=== PATIENT | male | born 1950 | race Caucasian/White ===

== ENCOUNTER 2018-11-23 11:21 | Outpatient (CLI) | payer MEDICARE, BC ==
[~2018-11-23] VITALS: Ht 188 cm; Wt 109.1 kg
--- NOTE | ~2018-11-23 | HEMODYNAMI ---
PATIENT:NELLY VAZQUEZ MEDICAL RECORD: [id number] : 54 LOCATION:[facility] ADMISSION DATE: 11/23/18 Generatedon:11/23/201814:07 Patient name: NELLY VAZQUEZ Patient #: [id number] SSN: : 1950 Date of study: 11/23/2018 Page: Of Hemodynamic Procedure Report Patient Data Patient Demographics Procedure consent was obtained First Name: NELLY Gender: Male Last Name: GEORGE : 1950 Patient #: [id number] Age: 68 year(s) Race: Unknown Additional ID: [id number] Contact details Address: [address] [place] [address] ROAD State: [place] City: [place] Zip code: [address] Past Medical History Allergies: No known allergies Admission Admission Data Admission Date: 11/23/2018 Admission Time: 11:21 Procedure Procedure Types Cath Procedure Diagnostic Procedure TRACY Procedure Description Procedure Date Procedure Date: 11/23/2018 Procedure Start Time: 13:46 Procedure End Time: 13:59 Procedure Staff Name Function Jeffry Aparicio RN Nurse Fernando Silver MD Performing Physician Jarrell Cisneros RT Scrub Carmencita Price RT Monitor Debby Jha Goldbeater Morro Combs CRNA Additional personnel Procedure Data Cath Procedure Estimated blood loss: 10 ml Procedure Complications No complications Procedure Medications Medication Administration Route Dosage Oxygen etCO2 Nasal cannula 6 l/min 0.9% NaCl I.V. 100 ml/hr Refer to Anesthesia Notes for Sedation Medications Hemodynamics Rest Heart Rate: 77 (bpm) Snapshots Pre Cath Intra NCS Post Cath Vital Signs Time Heart Resp SPO2 etCO2 NIBP (mmHg) Rhythm Pain Sedation Rate (ipm) (%) (mmHg) Status Level (bpm) 13:39:17 74 16 99 0 158/94(126) NSR 0 (11) 10(A) , No pain 13:43:41 109 16 99 0 133/95(107) NSR 0 (11) 10(A) , No pain 13:48:13 100 17 98 0 159/90(120) NSR 0 (11) 9(A) , No pain 13:52:11 84 17 96 0 103/56(76) NSR 0 (11) 9(A) , No pain 13:55:42 79 25 95 0 85/43(61) NSR 0 (11) 9(A) , No pain 14:03:23 81 6 96 0 106/60(72) NSR 0 (11) 9(A) , No pain Medications Time Medication Route Dose Verified Delivered Reason Notes Effective ness by by 13:48:29 Oxygen etCO2 6 Fernando Teran Per Nasal l/min St Cole Aparicio RN physician cannula 13:48:39 0.9% NaCl I.V. 100 Fernando Teran Per ml/hr St Cole Aparicio RN physician 13:48:47 Refer to Fernando Teran Per Anesthesia St Cole Aparicio RN physician Notes for MD Sedation Medications Procedure Log Time Note 13:31:30 Jeffry Aparicio RN sent for patient. Start room use. 13:38:30 Vital chart was started 13:41:28 Diagnostic Cath status Elective 13:41:32 Time tracking: Regular hours (M-F 7:00 - 5:00) 13:41:48 Patient received from Pre/Post Procedure Room to CCL 3 Alert and oriented. Tansferred to table in Supine position. 13:41:49 Warm blankets applied, and mayito hugger turned on for patient comfort. 13:41:50 Correct patient and procedure confirmed by team. 13:41:52 Signed procedure consent form obtained from patient. 13:41:53 ECG and BP/O2 sat monitors applied to patient. 13:41:54 Baseline sample Acquired. 13:42:00 Rhythm: sinus rhythm 13:42:02 Full Disclosure recording started 13:42:18 H&P Date Dictated: 11/07/2018 Within 30 days and on chart., H&P Addendum completed by physician on day of procedure. (MUST COMPLETE FOR ALL OUTPATIENTS). 13:42:22 Family in waiting room. 13:42:24 Patient NPO since Midnight. 13:42:32 Patient allergic to No known allergies 13:43:53 Is the patient allergic to Iodine/contrast media? No. 13:43:57 Was the patient premedicated? Yes 13:44:03 Is patient on blood thinner?No 13:44:12 Patient diabetic? No. 13:44:17 Snore? Yes 13:44:20 Sleep apnea? No 13:44:27 Patient pain scale 0/10 ?. 13:44:39 IV patent on arrival in left forearm with 0.9% NaCl at [facility]. 13:44:49 Lab results completed and on chart. 13:44:52 Alarms reviewed by Che Sampson. 13:44:53 Physician arrived 13:44:53 Sharps counted by scrub and verified by R.N. 13:44:54 --------ALL STOP TIME OUT------ 13:45:06 Final Timeout: patient, procedure, and site verified with staff and physician. All members of the team are in agreement. 13:45:12 Fire Safety Assessment: A--An alcohol-based skin anteseptic being used preoperatively., B--The operative or invasive procedure is being performed above the xiphoid process or in the oropharynx., D--An ESU, laser, or fiber-optic light is being used. 13:45:20 Physical assessment completed. ASA score P 2 - A patient with mild systemic disease as per Fernando Silver MD. 13:45:24 Morro Combs CRNA present and monitoring patient for TIVA. 13:45:32 Sedation plan: TIVA Medication:Propofol 13:46:15 Procedure started. 13:46:43 Debby Perrindsoe Gum Maker present for TRACY. 13:46:49 TRACY started. 13:48:29 Oxygen 6 l/min etCO2 Nasal cannula was administered by Jeffry Aparicio RN; Per physician; 13:48:39 0.9% NaCl 100 ml/hr I.V. was administered by Jeffry Aparicio RN; Per physician; 13:48:47 Refer to Anesthesia Notes for Sedation Medications was administered by Jeffry Aparicio RN; Per physician; 13:53:24 TRACY completed. 13:53:50 Procedure ended.(Physican Out) 13:58:17 Insertion/operative site no bleeding no hematoma. 13:58:33 Post-procedure physical assessment completed. ASA score P 2 - A patient with mild systemic disease as per Fernando Silver MD. 13:58:37 Post procedure rhythm: sinus rhythm 13:58:41 Estimated blood loss: 10 ml 13:58:43 Post procedure instruction explained to patient.Patient verbalizes understanding. 13:58:50 Procedure and supply charges have been captured, reviewed, submitted and are correct. 13:59:07 Procedure Complication : No complications 13:59:09 Vital chart was stopped 13:59:10 See physician's report for complete and final results. 13:59:13 Report given to Pre/Post Procedure Room. 13:59:16 Patient transfered to Pre/Post Procedure Room with Stretcher. 13:59:20 Full Disclosure recording stopped 13:59:20 Procedure ended. 13:59:22 End room use (Document Last) Signature Audit [place] Stage Time Signature Unsigned Intra-Procedure 11/23/2018 Carmencita Cisneros RT(R) 1:59:52 PM RT(R) 11/23/2018 2:02:47 PM Intra-Procedure 11/23/2018 Carmencita Price 2:07:48 PM RT(R) Signatures Monitor : Carmencita Priec Signature : RT Date : Time : [facility] [address] [place] [address]
--- NOTE | ~2018-11-23 | TEE ---
PATIENT:NELLY VAZQUEZ MEDICAL RECORD: [id number] LOCATION:[facility] AGE OF PATIENT: 68 ADMISSION DATE: 11/23/18 SEX: M REFERRING PHYSICIAN: INTERPRETING PHYSICIAN: BETH ALCARAZ MD TRANSESOPHAGEAL ECHOCARDIOGRAM Date: 11/23/18 TRACY CHARGE Y INDICATIONS: MR PREMEDICATIONS: PATIENT'S RESPONSE PROCEDURE DOPPLER MEASUREMENTS: LVIT LA PA RA LVOT RVOT Asc. Ao AV Gradient Peak AV Mean AV Area MV Gradient Peak MV Mean MV Area INTERPRETATION: Doppler: 2-D: COLOR FLOW DOPPLER NORMAL SALINE STUDY: MISCELLANOUS: DIAGNOSIS: PLAN: Mold Maker:3 Dr. Gregory Cotton Presser: 1 JAMES ALBA COMMENTS: DATE OF SERVICE: 11/23/2018 PROCEDURE: Transesophageal Note. DESCRIPTION OF PROCEDURE: After general sedation via TIVA via anesthesia, transesophageal Omniplane probe was placed to the distal esophagus and proximal stomach without difficulty. FINDINGS: LVH is present. LV internal dimensions are normal. Wall motion is TRANSESOPHAGEAL ECHOCARDIOGRAM REPORT [id number] NELLY VAZQUEZ normal. He is greater than or equal to 55%. Aortic valve is well visualized. This is trileaflet with good valve excursion. No AI. The left atrium appears mildly dilated at most. Left atrial appendage is well visualized with good contractility. No evidence of thrombus. 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 This wraps around to the level of the pulmonary vein. Right-sided chambers grossly normal. Tricuspid valve appears normal. No more than mild TR by color flow imaging. TRANSINT:[id number] Voice Confirmation ID: [id number] DOCUMENT ID: [id number] BETH ALCARAZ MD CC: [id number] DICTATION DATE: 11/23/18 1358 MOTOR ROOM CONTROLLER: 11/23/18 1501 [facility] [address] [place] [address]
[2018-11-23] MEDS ORDERED: NORVASC10 MG PO (11:33)
[2018-11-23] MEDS ORDERED: LISINOPRIL20 MG PO (11:33)
[2018-11-23] MEDS ORDERED: GLUCOSAMINE HC500 MG PO (11:34)
[2018-11-23] MEDS ORDERED: MULTI-DAY VITAM1 TAB PO (11:34)
[2018-11-23 11:46] VITALS: BP 158/81; Ht 188 cm; Wt 109.1 kg
[2018-11-23 11:55] LABS: BASOPHILS 1.5 % (0-2); EOSINOPHILS 3.6 % (0-7); HEMATOCRIT 41.4 % (42.0-54.0); HEMOGLOBIN 14.8 g/dL (13.5-17.5); LYMPHOCYTES 27.6 % (15-50); MCH 34.7 pg (26.0-34.0); MCHC 35.7 g/dL (31.0-37.0); MCV 97.2 fL (80.0-100.0); MEAN PLATELET VOLUME 10.4 fL (7.4-10.4); MONOCYTES 13.7 % (2-11); NEUTROPHILS 53.6 % (40-80); PLATELET COUNT 201 10x3/uL (130-400); RBC 4.26 10x6/uL (4.20-6.10); RDW 12.2 % (11.5-14.5); WBC 4.7 10x3/uL (4.8-10.8)
[2018-11-23 12:01] LABS: INR 0.97 (0.85-1.17); PROTIME 12.4 SECONDS (11.6-15.0)
[2018-11-23 12:02] LABS: CALC OSMOLALITY 279 mosm/kg (275-300); CALCIUM 9.2 mg/dL (8.5-10.1); CARBON DIOXIDE 28.6 mmol/L (21.0-32.0); CHLORIDE - SERUM 103 mmol/L (98-107); CREATININE - SERUM 0.9 mg/dL (0.6-1.3); GLUCOSE 103 mg/dL (74-106); POTASSIUM - SERUM 3.8 mmol/L (3.5-5.1); SODIUM 140 mmol/L (136-145); UREA NITROGEN 16 mg/dL (7-18); eGFR NON AFRICAN AMERICAN 90 mL/min (90-120)
--- NOTE | 2018-11-23 14:16 | NUR ---
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 PT IS SITTING UP IN BED, ALERT AND DENIES ANY C/O. NSR, RATE IS 78. BP IS 137/72. PT NPO POST PROCEDURE. FAMILY AT BEDSIDE, CALL LIGHT IN REACH.
--- NOTE | 2018-11-23 14:52 | NUR ---
1430 PT SITTING UP IN BED, VISITING WITH FAMILY. DENIES ANY C/O. VSS. CALL LIGHT IN REACH.
--- NOTE | 2018-11-23 14:53 | NUR ---
1450 PT ALERT, DENIES ANY C/O. VSS, RESP WITH EASE ON ROOM AIR.
--- NOTE | 2018-11-23 15:41 | NUR ---
1515 PT MARGRET PO FLUIDS WITH NO NAUSEA, NO DIFFICULTY SWALLOWING. PT IS ALERT AND DENIES ANY C/O. SANDWICH SERVED. 1530 PT HAS MARGRET SANDWICH WITH NO C/O. DC INSTRUCTIONS REVIEWED WITH PT AND SON WHO VERBALIZE UNDERSTANDING. IV DC'D WITH CATH INTACT AND PT IS DRESSING FOR DC TO HOME. 1535 PT ESCORTED TO BATHROOM, VOIDED QS. DENIES ANY C/O. PT ESCORTED TO PRIVATE AUTO VIA WC BY NURSE WITH SON DRIVING HIM HOME.
== END 2018-11-23 15:35 | disposition home or self-care (01) ==
LOC: D.CATH 11:21
PROVIDERS: ATTEND Internal Medicine Interventional Cardiology
DX: I34.9 Nonrheumatic mitral valve disorder, unspecified (principal)

== ENCOUNTER 2018-12-21 11:27 | Outpatient (CLI) | payer MEDICARE, BC ==
[~2018-12-21] VITALS: Ht 188 cm; Wt 109.1 kg
--- NOTE | ~2018-12-21 | HEMODYNAMI ---
PATIENT:TABBY VAZQUEZ MEDICAL RECORD: [id number] : 54 LOCATION:D.CAT ADMISSION DATE: 12/21/18 Generatedon:12/21/201813:21 Patient name: TABBY VAZQUEZ Patient #: [id number] SSN: : 1950 Date of study: 12/21/2018 Page: Of Hemodynamic Procedure Report Patient Data Patient Demographics Procedure consent was obtained First Name: TABBY Gender: Male Last Name: GEORGE : 1950 Middle Initial: BABAK Age: 68 year(s) Patient #: [id number] Race: Unknown Additional ID: [id number] Contact details Address: [address] [place] [address] ROAD State: [place] City: [place] Zip code: [address] Past Medical History Allergies: No known allergies Admission Admission Data Admission Date: 12/21/2018 Admission Time: 11:27 Height (in.): 72 BSA: 2.32 (m2) Height (cm.): 182.88 BMI: 33.09 (kg/m2) Weight (lbs.): 244 Weight (kg.): 110.68 Lab Results Lab Result Date: 12/21/2018 Lab Result Time: 0:00 Biochemistry Name Units Result Min Max BUN mg/dl 14 --(--*-)-- 7 18 Creatinine mg/dl 0.7 --(*---)-- 0.6 1.3 Procedure Procedure Types Cath Procedure Diagnostic Procedure [facility] w/Coronaries Procedure Description Procedure Date Procedure Date: 12/21/2018 Procedure Start Time: 13:05 Procedure End Time: 13:19 Procedure Staff Name Function Torito Salguero MD Performing Physician Carmencita Price RT Monitor Ana Harrison RT Scrub Nevaeh Rogers RN Nurse Procedure Data Cath Procedure Fluoroscopy Diagnostic fluoroscopy Total fluoroscopy Time: 4.4 time: 4.4 min min Diagnostic fluoroscopy Total fluoroscopy dose: 677 dose: 677 mGy mGy Contrast Material Contrast Material Type Amount (ml) Isovue 300 56 Entry Location Entry Primary Successful Side Size Upsize Upsize Entry Closure Martinez ccessful Closure Location (Fr) 1 (Fr) 2 (Fr) Remarks Device Remarks Radial Right 6 Fr Mechanical artery Short Compression Estimated blood loss: 10 ml Diagnostic catheters Device Type Used For End Catheter Placement DIAGNOSTIC Mukul 110cm Procedure 5Fr catheter ([id number]) DIAGNOSTIC Pigtail 5Fr catheter ([id number]) Procedure Complications No complications Procedure Medications Medication Administration Route Dosage 0.9% NaCl I.V. 100 ml/hr Oxygen etCO2 Nasal cannula 2 l/min Lidocaine 2% added to field 20 Heparin Flush Bag added to field 2 bags (1000units/500ml NS) Radial Cocktail added to field 1 syringe (Verapamil 2mg/Nitro 400mcg/Heparin 1500units) Versed I.V. 2 mg Fentanyl I.V. 50 mcg Versed I.V. 2 mg Fentanyl I.V. 50 mcg Versed I.V. 1 mg Fentanyl I.V. 50 mcg Versed I.V. 1 mg Fentanyl I.V. 50 mcg Hemodynamics Rest BSA: 2.32 (m2) O2 Consumption: Estimated: 277.11 (ml/min) O2 Consumption indexed : Estimated:119.44 (ml/min/m) Heart Rate: 78 (bpm) Pressure Samples Time Site Value (mmHg) Purpose Heart Use Rate(bpm) 13:15 LV 130/-4,11 Snapshot 82 13:16 AO 121/70(90) Pullback 81 13:16 LV 129/-2,13 Pullback 81 Gradients Valve Time Site 1 Site 2 Mean SEP/DFP Peak To Heart Use (mmHg) (sec/min) Peak Rate (mmHg) (bpm) Aortic 13:16 LV AO 9 8 8 81 129/-2,13 121/70(90) Calculations Valve P-P Mean Valve Index Valve Source Name Gradient Area Flow (cm2) Aortic 8 9 8 9 Snapshots Pre Cath Intra NCS Post Cath Vital Signs Time Heart Resp SPO2 etCO2 NIBP (mmHg) Rhythm Pain Sedation Rate (ipm) (%) (mmHg) Status Level (bpm) 12:43:10 90 18 98 34 149/91(122) NSR 0 (11) 10(A) , No pain 12:47:26 68 15 97 35 135/85(108) NSR 0 (11) 10(A) , No pain 12:51:40 74 16 98 33.6 126/77(104) NSR 0 (11) 10(A) , No pain 12:55:58 71 15 98 19.4 127/69(94) NSR 0 (11) 10(A) , No pain 13:00:08 71 16 98 34 111/72(91) NSR 0 (11) 10(A) , No pain 13:04:16 74 11 97 33.6 131/80(101) NSR 0 (11) 10(A) , No pain 13:08:26 79 16 98 32.8 117/78(91) NSR 0 (11) 10(A) , No pain 13:12:33 80 18 97 32.1 122/77(86) NSR 0 (11) 10(A) , No pain 13:16:41 80 18 98 35.8 115/78(95) NSR 0 (11) 10(A) , No pain Medications Time Medication Route Dose Verified Delivered Reason Notes E ffectiveness by by 12:42:24 0.9% NaCl I.V. 100 Torito Nevaeh used for ml/hr Jose M Rogers high energy forming equipment operator 12:42:30 Oxygen etCO2 2 l/min Torito Nevaeh used for Nasal Jose M Rogers procedure cannula RN 12:42:35 Lidocaine 2% added 20ml Torito Torito for local to vial Jose M Salguero MD anesthetic field 12:42:40 Heparin Flush added 2 bags Torito Torito used for Bag to Jose M Salguero MD procedure (1000units/500ml field NS) 12:42:45 Radial Cocktail added 1 Torito Torito used for (Verapamil to syringe Jose M Salguero MD procedure 2mg/Nitro field 400mcg/Heparin 1500units) 13:00:53 Versed I.V. 2 mg Torito Nevaeh for Jose M Rogers sedation RN 13:01:19 Fentanyl I.V. 50 mcg Torito Nevaeh for Jose M Rogers sedation RN 13:06:03 Versed I.V. 2 mg Torito Nevaeh for Jose M Rogers sedation RN 13:06:08 Fentanyl I.V. 50 mcg Torito Nevaeh for Jose M Rogers sedation RN 13:10:52 Versed I.V. 1 mg Torito Nevaeh for Jose M Rogers sedation RN 13:10:55 Fentanyl I.V. 50 mcg Torito Nevaeh for Jose M Rogers sedation RN 13:13:37 Versed I.V. 1 mg Torito Nevaeh for Jose M Rogers sedation RN 13:13:41 Fentanyl I.V. 50 mcg Torito Nevaeh for Jose M Rogers sedation supervisor vacuum metalizing Log Time Note 12:22:59 Signed procedure consent form obtained from patient. 12:23:01 Diagnostic Cath status Elective 12:23:02 Time tracking: Regular hours (M-F 7:00 - 5:00) 12:23:06 Plan of Care:Hemodynamics will remain stable., Cardiac rhythm will remain stable., Comfort level will be maintained., Respiratory function will remain adequate., Patient/ family verbilizes understanding of procedure., Procedure tolerated without complication., Recovers from procedure without complications.. 12:23:25 H&P Date Dictated: 12/01/2018 Within 30 days and on chart., H&P Addendum completed by physician on day of procedure. (MUST COMPLETE FOR ALL OUTPATIENTS). 12:23:30 Patient allergic to No known allergies 12:23:42 Patient Height : 72 inches 12:23:45 Patient Weight : 244 lbs 12:28:54 Ana Harrison RT(R) sent for patient. Start room use. 12:34:11 Patient received from Pre/Post Procedure Room to CCL 1 Alert and oriented. Tansferred to table in Supine position. 12:34:13 Warm blankets applied, and mayito hugger turned on for patient comfort. 12:34:14 Correct patient and procedure confirmed by team. 12:34:56 ECG and BP/O2 sat monitors applied to patient. 12:34:57 Pre-procedure instructions explained to patient. 12:34:57 Pre-op teaching completed and patient verbalized understanding. 12:34:59 Family in waiting room. 12:35:01 Patient NPO since Breakfast. 12:35:37 Is patient on blood thinner?No 12:36:13 Patient diabetic? No. 12:36:18 Previous problem with sedation/anesthesia? No ? 12:36:26 Snore? No 12:36:27 Sleep apnea? No 12:36:27 Deviated septum? No 12:36:28 Opens mouth fully? Yes 12:36:29 Sticks out tongue? Yes 12:36:31 Airway obstruction? No ? 12:36:35 Dentures? Yes in tight 12:38:08 Patient pain scale 0/10 ?. 12:38:13 IV patent on arrival in left forearm with 0.9% NaCl at [facility]. 12:38:35 Lab results completed and on chart. 12:39:01 Lab Result : BUN 14 mg/dl 12:39:01 Lab Result : Creatinine 0.7 mg/dl 12:39:19 Modified Toni's test Ulnar < 7 seconds 12:39:20 Pre procedure: right dorsailis pedis pulse 2+ Normal; easily identifiable; not easily obliterated 12:39:30 Right Radial & Right Groin area was prepped with chlora-prep and draped in sterile fashion 12:39:30 Alarms reviewed by R. N. 12:39:31 Sharps counted by scrub and verified by R.N. 12:39:33 Use device set Radial Dx or PCI 12:39:34 ACIST Syringe (87387) opened to sterile field. 12:39:34 Medline Cath Pack ([id number]) opened to sterile field. 12:39:35 Bag Decanter (2002S) opened to sterile field. 12:39:36 ACIST Hand Control (00212) opened to sterile field. 12:39:36 ACIST Manifold (36033) opened to sterile field. 12:39:37 Tegaderm 4 x 4 (1626W) opened to sterile field. 12:39:37 MBrace Wrist Support ([id number]) opened to sterile field. 12:39:38 DIAGNOSTIC WIRE .035 260cm J wire (706781) opened to sterile field. 12:39:39 SHEATH 6FR Slender (801060) opened to sterile field. 12:39:40 NEEDLE Cook 21G 4cm Radial ([id number]) opened to sterile field. 12:39:46 Vital chart was started 12:42:24 0.9% NaCl 100 ml/hr I.V. was administered by Nevaeh Rogers RN; used for procedure; 12:42:30 Oxygen 2 l/min etCO2 Nasal cannula was administered by Nevaeh Rogers RN; used for procedure; 12:42:35 Lidocaine 2% 20ml vial added to field was administered by Torito Salguero MD; for local anesthetic; 12:42:40 Heparin Flush Bag (1000units/500ml NS) 2 bags added to field was administered by Torito Salguero MD; used for procedure; 12:42:45 Radial Cocktail (Verapamil 2mg/Nitro 400mcg/Heparin 1500units) 1 syringe added to field was administered by Torito Salguero MD; used for procedure; 12:49:31 Baseline sample Acquired. 12:49:38 Baseline sample Acquired. 12:50:15 Baseline sample Acquired. 12:51:44 Physician arrived 12:51:45 --------ALL STOP TIME OUT------ 12:56:48 Zero performed for pressure channel P1 13:00:01 Final Timeout: patient, procedure, and site verified with staff and physician. All members of the team are in agreement. 13:00:05 Right Radial & Right Groin site verified by team. 13:00:09 Maximum allowable Isovue 300 dose 300ml. Physician notified. (300ml for normal creatinines. For patients with creatinine of 1.7 or higher multiply weight(kg) x 5 divided by creatinine.) 13:00:13 Fire Safety Assessment: A--An alcohol-based skin anteseptic being used preoperatively., C--Open oxygen or nitrous oxide is being used., D--An ESU, laser, or fiber-optic light is being used. 13:00:17 Physical assessment completed. ASA score P 2 - A patient with mild systemic disease as per Torito Salguero MD. 13:00:22 Sedation plan: IV Moderate Sedation Medication:Versed, Fentanyl 13:00:53 Versed 2 mg I.V. was administered by Nevaeh Rogers RN; for sedation; 13:01:19 Fentanyl 50 mcg I.V. was administered by Nevaeh Rogers RN; for sedation; 13:05:35 Procedure started. 13:05:35 Full Disclosure recording started 13:05:48 Local anesthetic to right radial artery with Lidocaine 2% by Torito Salguero MD.INITIAL ACCESS ONLY 13:06:03 Versed 2 mg I.V. was administered by Nevaeh Rogers RN; for sedation; 13:06:08 Fentanyl 50 mcg I.V. was administered by Nevaeh Rogers RN; for sedation; 13:06:43 A 6 Fr Short sheath was inserted into the Right Radial artery 13:09:40 A DIAGNOSTIC Mukul 110cm 5Fr catheter ([id number]) was advanced over the wire and used for Procedure. 13:09:50 GLIDE WIRE ANGLE 260cm ([id number]) opened to sterile field. 13:10:52 Versed 1 mg I.V. was administered by Nevaeh Rogers RN; for sedation; 13:10:55 Fentanyl 50 mcg I.V. was administered by Nevaeh Rogers RN; for sedation; 13:11:29 LCA angiography performed. 13:12:46 RCA angiography performed. 13:12:52 Catheter removed. 13:13:25 A DIAGNOSTIC Pigtail 5Fr catheter ([id number]) was advanced over the wire and used for . 13:13:37 Versed 1 mg I.V. was administered by Nevaeh Rogers RN; for sedation; 13:13:41 Fentanyl 50 mcg I.V. was administered by Nevaeh Rogers RN; for sedation; 13:15:53 EF : 55 % 13:16:21 TR BAND Standard ([id number]) opened to sterile field. 13:17:22 Catheter removed. 13:17:45 Sheath removed intact; hemostasis achieved with Mechanical Compression to the Right Radial artery. 13:17:50 Procedure ended.(Physican Out) 13:18:02 Fluoroscopy time 04.40 minutes. 13:18:07 Fluoroscopy dose: 677 mGy 13:18:07 Flurop Dose total: 677 13:18:14 Contrast amount:Isovue 300 56ml. 13:18:22 TR band inflated with 10cc of air. 13:18:24 Insertion/operative site no bleeding no hematoma. 13:18:27 Post Procedure Pulses reassessed and unchanged 13:18:31 Post-procedure physical assessment completed. ASA score P 2 - A patient with mild systemic disease as per Torito Salguero MD. 13:18:35 Post procedure rhythm: unchanged. 13:18:39 Estimated blood loss: 10 ml 13:18:42 Post procedure instruction explained to patient.Patient verbalizes understanding. 13:18:59 Procedure and supply charges have been captured, reviewed, submitted and are correct. 13:19:17 Procedure Complication : No complications 13:19:20 Vital chart was stopped 13:19:21 See physician's report for complete and final results. 13:19:35 Report given to Pre/Post Procedure Room. 13:19:39 Patient transfered to Pre/Post Procedure Room with Stretcher. 13:19:41 Procedure ended. 13:19:41 Full Disclosure recording stopped 13:19:46 End room use (Document Last) Device Usage Item Name Manufacture Quantity Catalog Hospital Part Current Minimal Lot# / Number Charge Number Stock Stock Serial# Code ACIST Acist 1 10106 974983 689860 213124 20 Syringe Medical (68704) Systems Inc Medline Medline 1 [id number] 695198 54268 477325 5 Cath Pack ([id number]) Bag Microtek 1 643539 27549 053226 5 Decanter Medical Inc. () ACIST Hand Acist 1 46793 344186 008965 193613 5 Control Medical (66019) Systems Inc ACIST Acist 1 62731 886275 600106 627635 5 Manifold Medical (23960) Systems Inc Tegaderm 4 3M 1 1626W 218574 814697 144029 5 x 4 (1626W) MBrace Advanced 1 140-0250-00 011968 25991 411626 5 Wrist Vascular Support Dynamics ([id number]) DIAGNOSTIC St Amaury 1 082369 883893 524814 342683 30 WIRE .035 260cm J wire (430358) SHEATH 6FR Terumo 1 [id number] 255748 008727 369848 5 Slender (80-1060) NEEDLE Cook Cook Medical 1 W22823 893655 922947 924588 5 21G 4cm Radial (P28762) DIAGNOSTIC Terumo 1 405023 291281 874409 129344 5 Mukul 110cm 5Fr catheter (233438) GLIDE WIRE Terumo 1 VP8499 374624 114058 726677 5 ANGLE 260cm (RI8640) DIAGNOSTIC Cardinal 1 [id number] 857065 760685 693311 5 Pigtail 5Fr Health catheter (642375G) TR BAND Terumo 1 [id number] 047420 853291 628304 40 Standard ([id number]) Signature Audit [place] Stage Time Signature Unsigned Intra-Procedure 12/21/2018 Carmencita Price 1:21:28 PM RT(R) Signatures Monitor : Carmencita Price Signature : RT Date : Time : [address] [place] [address]
[~2018-12-21 11:27] MED LIST: GLUCOSAMINE HC500 MG PO; LISINOPRIL20 MG PO; MULTI-DAY VITAM1 TAB PO; NORVASC10 MG PO
[2018-12-21] MEDS ORDERED: MOTRIN PM CAPL1 EACH PO (11:57)
[2018-12-21 12:13] VITALS: BP 162/89; BMI 30.8
[2018-12-21 12:37] LABS: CALC OSMOLALITY 278 mosm/kg (275-300); CALCIUM 9.2 mg/dL (8.5-10.1); CARBON DIOXIDE 27.6 mmol/L (21.0-32.0); CHLORIDE - SERUM 101 mmol/L (98-107); CREATININE - SERUM 0.7 mg/dL (0.6-1.3); GLUCOSE 104 mg/dL (74-106); POTASSIUM - SERUM 3.8 mmol/L (3.5-5.1); SODIUM 139 mmol/L (136-145); UREA NITROGEN 14 mg/dL (7-18); eGFR NON AFRICAN AMERICAN > 90 mL/min (90-120)
[2018-12-21 12:41] LABS: BASOPHILS 2.4 % (0-2); EOSINOPHILS 4.3 % (0-7); HEMATOCRIT 40.3 % (42.0-54.0); HEMOGLOBIN 14.4 g/dL (13.5-17.5); LYMPHOCYTES 30.5 % (15-50); MCH 34.7 pg (26.0-34.0); MCHC 35.7 g/dL (31.0-37.0); MCV 97.1 fL (80.0-100.0); MEAN PLATELET VOLUME 10.3 fL (7.4-10.4); MONOCYTES 10.2 % (2-11); NEUTROPHILS 52.6 % (40-80); PLATELET COUNT 206 10x3/uL (130-400); RBC 4.15 10x6/uL (4.20-6.10); RDW 12.1 % (11.5-14.5); WBC 3.7 10x3/uL (4.8-10.8)
--- NOTE | 2018-12-21 13:45 | NUR ---
ROOM AIR, NO RESP DISTRESS. RIGHT WRIST TR BAND CDI, NO BLEEDING OR HEMATOMA NOTED. NO C/O PAIN OR NAUSEA. VSS. FAMILY AT BEDSIDE, CALL LIGHT WITHIN REACH.
--- NOTE | 2018-12-21 14:15 | NUR ---
RESTING COMFORTABLY WITH NO C/O. RIGHT WRIST TR BAND CDI, NO BLEEDIGN OR HEMATOMA NOTED. DENIES ANY NEEDS. VSS. WILL CONTINUE TO MONITOR.
--- NOTE | 2018-12-21 14:30 | NUR ---
3CC OF AIR REMOVED FROM TR BAND WITH NO BLEEDING NOTED. VSS. WILL CONTINUE TO MONITOR.
--- NOTE | 2018-12-21 14:45 | NUR ---
3CC OF AIR REMOVED FROM TR BAND WITH NO BLEEDING NOTED.
--- NOTE | 2018-12-21 15:05 | NUR ---
2CC OF AIR REMOVED FROM TR BAND WITH NO BLEEDING NOTED. LEFT PIV D/C'D WITH CATHETER INTACT, BAND AID TO SITE. UP TO BEDSIDE TO GET DRESSED. AMBULATED TO RESTROOM.
--- NOTE | 2018-12-21 15:20 | NUR ---
REMAINING AIR REMOVED FROM TR BAND WITH NO BLEEDING NOTED. DRESSING TO SITE. DISCHARGE INSTRUCTIONS ALONG GIVEN TO PT AND FAMILY, BOTH VERBALIZED UNDERSTANDING.
--- NOTE | 2018-12-21 15:28 | NUR ---
DR. CRUM AT BEDSIDE SPEAKING WITH PATIENT AND FAMILY.
--- NOTE | 2018-12-21 15:50 | NUR ---
TAKEN OUT VIA WHEELCHAIR BY CATH HOMOGENIZER OPERATOR. LEFT FACILITY WITH FAMILY AND ALL PERSONAL BELONGINGS.
[2018-12-21 16:10] VITALS: Ht 188 cm; Wt 109.1 kg
== END 2018-12-21 15:50 | disposition home or self-care (01) ==
LOC: D.CATH 11:27
PROVIDERS: ATTEND Internal Medicine Cardiovascular Disease
DX: I34.0 Nonrheumatic mitral (valve) insufficiency (principal); Z01.812 Encounter for preprocedural laboratory examination; R01.1 Cardiac murmur, unspecified; I10 Essential (primary) hypertension; Z87.891 Personal history of nicotine dependence; Z79.1 Long term (current) use of non-steroidal anti-inflammatories (NSAID); Z79.899 Other long term (current) drug therapy

== ENCOUNTER 2019-01-06 09:38 | Inpatient (IN) | payer MEDICARE, BC ==
[~2019-01-06] VITALS: Ht 188 cm; Wt 108.3 kg
[~2019-01-06 09:38] MED LIST changes: +MOTRIN PM CAPL1 EACH PO
[2019-01-06] MEDS ORDERED: MOTRIN PM CAPL1 EACH PO (10:02)
[2019-01-06 10:59] LABS: BASOPHILS 1.4 % (0-2); EOSINOPHILS 4.2 % (0-7); HEMATOCRIT 41.7 % (42.0-54.0); LYMPHOCYTES 25.4 % (15-50); MCH 35.2 pg (26.0-34.0); MCV 97.9 fL (80.0-100.0); MEAN PLATELET VOLUME 10.4 fL (7.4-10.4); MONOCYTES 12.8 % (2-11); NEUTROPHILS 56.2 % (40-80); PLATELET COUNT 196 10x3/uL (130-400); RBC 4.26 10x6/uL (4.20-6.10); RDW 11.9 % (11.5-14.5); WBC 3.6 10x3/uL (4.8-10.8)
[2019-01-06 11:23] LABS: ALBUMIN 4.3 g/dL (3.4-5.0); ALKALINE PHOSPHATASE 34 U/L (46-116); ALT (SGPT) 34 U/L (10-68); BILIRUBIN - TOTAL 0.83 mg/dL (0.2-1.3); CALC OSMOLALITY 281 mosm/kg (275-300); CALCIUM 9.5 mg/dL (8.5-10.1); CARBON DIOXIDE 28.3 mmol/L (21.0-32.0); CHLORIDE - SERUM 102 mmol/L (98-107); CHOLESTEROL, TOTAL 269 mg/dL (0-200); CREATININE - SERUM 0.8 mg/dL (0.6-1.3); GLUCOSE 116 mg/dL (74-106); PHOSPHOROUS 4.2 mg/dL (2.5-4.9); POTASSIUM - SERUM 4.1 mmol/L (3.5-5.1); PROTEIN - SERUM 7.7 g/dL (6.4-8.2); SODIUM 140 mmol/L (136-145); T4 THYROXIN - FREE 1.02 ng/dL (0.76-1.46); THYROID STIMULATING HORMONE 0.81 uIU/mL (0.36-3.74); UREA NITROGEN 17 mg/dL (7-18); URIC ACID 4.4 mg/dL (2.6-7.2); eGFR NON AFRICAN AMERICAN > 90 mL/min (90-120)
[2019-01-06 11:29] LABS: APPEARANCE CLEAR (CLEAR); COLOR YELLOW (YELLOW)
[2019-01-06 11:30] LABS: BILIRUBIN NEGATIVE (NEGATIVE); GLUCOSE NEGATIVE (NEGATIVE); KETONE NEGATIVE (NEGATIVE); NITRITE NEGATIVE (NEGATIVE); PROTEIN NEGATIVE (NEGATIVE); UROBILINOGEN NORMAL (NORMAL)
[2019-01-06 11:50] LABS: APTT 24.8 SECONDS (22.8-39.4); INR 0.99 (0.85-1.17); PROTIME 12.6 SECONDS (11.6-15.0)
[2019-01-10] VITALS (23 sets, daily range): BP systolic 87–161; BP diastolic 46–92; BMI 31.1
--- NOTE | 2019-01-10 13:41 | NUR ---
1208 PT RECEIVED TO ROOM SEDATED FROM SURGERY ETT SECURED AND PLACED ON VENT BY RT, AC, R IJ CVL DRESSING CDI WITH SWAN KINJAL LOCKED AT 55CM, SEE IV FLOWSHEET, MIDSTERNAL AND SUBSTERNAL DRESSINGS CDI WITH TPM WIRES ATTACHED TO TPM, TPM OFF, SUBSTERNAL CTX2 Y'D TOGETHER, 20CM SUCTION, NO AIR LEAK, BLOODY DRAINAGE, CRITICORE DRAINING YELLOW URINE, SCDS AND TEDS IN PLACE 1250ABGS CALLED TO DR CRUM, ORDERS TO NOT TREAT BASE EXCESS 1300 A LINE WAVEFORM DAMPENING, POSITIONAL, FLUSHED, DRAWS BLOOD, DRESSING REMOVED AND REDRESSED, WRIST PROTECTOR REPOSITIONED, CONTINUES TO HAVE POOR OR FLAT WAVEFORM WITH INTERMITTEN GOOD WAVEFORM, DR ARNDT NURSE CHRIS NOTIFIED 1330 DR HERNANDEZ WITH ANESTHESIA IN ROOM AND REPOSITIONED A LINE, CONTINUES TO FLATTEN AND DAMPEN INTERMITTENLY BUT WHEN READING IS COMPARABLE TO NIBP DR CRUM IN ROOM AND ORDERS TO TREAT ORIGINAL BASE EXCESS WITH 1 AMP BICARB
--- NOTE | 2019-01-10 14:52 | NUR ---
ABGS REVIEWED BY DR SKYLA FITZGERALD TO EXTUBATE AND DC Oswaldo SOSA
--- NOTE | 2019-01-10 15:23 | NUR ---
1453 EXTUBATED AND RESTRAINTS REMOVED 1510 R RADIAL A LINE REMOVED PER PROTOCOL TIP INTACT NO SIGNS OF BLEEDING, SWAN KINJAL REMOVED PER PROTOCOL AND CAP PLACED
--- NOTE | 2019-01-10 15:35 | OP ---
PATIENT NAME: TABBY VAZQUEZ MEDICAL RECORD: [id number] :54 LOCATION:[facility] D.CV06 ADMISSION DATE:01/10/19 SURGEON: WYATT CRUM MD DATE OF OPERATION: 01/10/2019 SURGEON: Wyatt Crum MD UNIVERSITY CONTROLLER: Samuel Delcid. OPERATION PERFORMED. Complex mitral valve repair with resection of portion of posterior leaflet and 34 mm mitral annuloplasty ring. PREOPERATIVE DIAGNOSIS: Mitral regurgitation. POSTOPERATIVE DIAGNOSIS: Mitral regurgitation. ANESTHESIA: General endotracheal anesthesia. ESTIMATED BLOOD LOSS: Total cardiopulmonary bypass with Cell Saver retransfusion. COMPLICATIONS: None. SPECIMENS: Portion of posterior leaflet. CONDITION: Stable. DISPOSITION: ICU. OPERATIVE FINDINGS: Transesophageal echocardiography confirmed the previous findings of an eccentric jet with severe regurgitation, left atrium 4.5 cm, left ventricular end-diastolic dimension 5.6 cm, and moderate left ventricular hypertrophy. After repair, there was only trace mitral regurgitation. Intraoperatively ruptured secondary chordae from P1 amenable to a triangular resection, central regurgitant jet repaired with annuloplasty ring. OPERATIVE INDICATION: Mitral regurgitation. OPERATIVE SUMMARY IN DETAIL: The patient was brought to the operating suite. General anesthesia was obtained. The patient was prepped and draped. Mediastinotomy incision was made. Subcutaneous tissue divided with electrocautery. The sternum was divided with a saw. The pericardium was opened. Heparin was given. Aorta was cannulated. Bicaval cannulation was performed. Retrograde cardioplegia cannula was inserted. After activated clotting time was appropriately elevated, the patient was placed on cardiopulmonary bypass. The patient was cooled. Crossclamp was placed. A 14-gauge angiocatheter was used for the aortic root vent and cardioplegia given antegrade and retrograde. This was repeated at about 20-minute intervals during the crossclamp time. The interatrial groove was dissected out. The left atrium was entered. The valve was visualized with findings as noted above. Triangular resection of posterior leaflet with primary repair [id number] of the slightly thickened valvular tissue and again the bowel was inspected with a central jet. No significant prolapse of the anterior or posterior leaflet. Therefore, the valve OPERATIVE REPORT [id number] TABBY VAZQUEZ was sized to 34 mm. Interrupted sutures were placed along the annulus through the valve sewing ring, valve ring was carefully lowered into place, sutures were tied. Only trace regurgitation was noted. The patient was rewarmed. The aortotomy was closed and with the patient in steep Trendelenburg position, the left ventricular apex was de-aired the crossclamp was removed. The aortic root vent was eventually removed. The patient resumed a spontaneous rhythm, fully rewarmed, weaned from cardiopulmonary bypass and stable. The patient was decannulated. Aortic cannulation site was oversewn with pledgeted Prolene suture. Protamine was given. Thorough irrigation was undertaken and hemostasis was ensured. Drains were placed in the mediastinum. Atrial and ventricular pacing wires were placed. Pericardial fat was loosely reapproximated. Sternum was closed. Fascia was closed. Subcutaneous tissue was closed. Skin was closed. Dermabond was placed. The needle and sponge counts were reported as correct and the patient was taken to ICU in stable condition. TRANSINT:[id number] Voice Confirmation ID: [id number] DOCUMENT ID: [id number] WYATT CRUM MD at 1535 CC: SOPHIE HOGAN M.D. and LO BYRNE MD [id number] DICTATION DATE: 01/10/19 1212 PURCHASING BUYER: 01/10/19 1306 ADM IN [facility] [address] [place] [address]
--- NOTE | 2019-01-10 16:13 | CN ---
PATIENT NAME:TABBY VAZQUEZ MEDICAL RECORD: [id number] : 54 LOCATION:[facility]CV06 ADMIT DATE: 01/10/19 ACCOUNT: [id number] CONSULTING PHYSICIAN: CHELO PINO DO REFERRING PHYSICIAN: DULCE CRUM MD DATE OF CONSULTATION: 01/10/2019 FAMILY PRACTICE CONSULT HISTORY OF PRESENT ILLNESS: Mr. Vazquez is a 68-year-old white male patient who is seen postoperatively after undergoing mitral valve replacement. He is currently stable and has been extubated. Discussed with Dr. Crum. His vitals appear good. His pain seems controlled at this time. PAST MEDICAL HISTORY: Significant for known mitral valve disorder, hypertension. PAST SURGICAL HISTORY: Include a T&A and inguinal surgeries with subsequent repairs on the left. ALLERGIES OR INTOLERANCES: None known. HOME MEDICATIONS: Include Norvasc 10 mg a day, lisinopril 20 mg a day, multivitamin, glucosamine, and ibuprofen PM FAMILY HISTORY: Significant for cardiovascular disease and hypertension. SOCIAL HISTORY: The patient is a smoker in the past. He denies any drug use. REVIEW OF SYSTEMS: Currently he is having some chest pain, which is to be expected. Denies any shortness of breath. No nausea at this time. PHYSICAL EXAMINATION: HEENT: Head is normocephalic, sclerae nonicteric. Mucous membranes are moist. HEART: Regular. LUNGS: With good breath sounds bilaterally. Anterior thoracotomy incision is dry. ABDOMEN: Soft, few bowel sounds are noted. NEUROLOGIC: Grossly intact. IMPRESSION: 1. Mitral valve disease status post repair, now extubated. 2. Hypertension. PLAN: We will follow in ICU. Monitor BP, monitor labs. See orders for rest of plan. TRANSINT:[id number] Voice Confirmation ID: [id number] DOCUMENT ID: [id number] CONSULT REPORT [id number] TABBY VAZQUEZ CHELO PINO DO at 1613 CC: [id number] DICTATION DATE: 01/10/19 1540 CODE MACHINE OPERATOR: 01/10/19 1551 ADM IN [place] [address] [place] [address]
--- NOTE | 2019-01-10 16:31 | NUR ---
GOOD COUGH, PULLS 500-1200 ON IS
--- NOTE | 2019-01-10 17:24 | MORECARE ---
CASE MANAGEMENT DISCHARGE SUMMARY PATIENT: TABBY VAZQUEZ UNIT: [id number] ADM DATE: 01/10/19 AGE: 68 : 52 SEX: M [facility] AUTHOR: JOSE L GLASS PHYSICIAN: REFERRING PHYSICIAN: DULCE CRUM MD DATE OF SERVICE: 01/10/19 Discharge Plan Patient Name: TABBY VAZQUEZ [facility] [facility] 1950 Planned Disposition: Home Anticipated Discharge Date: Discharge Date: Expected LOS: Initial Reviewer: [email or web address] Initial Review Date: 01/10/2019 Generated: 01/10/19 6:24 pm Patient Name: TABBY VAZQUEZ Page 38862 at 1724 All edits/amendments must be made on the electronic document DICTATION DATE: 01/10/191722 SLEEVE FIXER: SOLOMON 01/10/191722 RPT#: [id number] IA DATE: STATUS: ADM IN [facility] [address] [place] [address] END OF REPORT
--- NOTE | 2019-01-10 17:32 | MORECARE ---
CASE MANAGEMENT DISCHARGE SUMMARY PATIENT: TABBY VAZQUEZ UNIT: [id number] ADM DATE: 01/10/19 AGE: 68 : 52 SEX: M [facility] AUTHOR: JOSE L GLASS PHYSICIAN: REFERRING PHYSICIAN: DULCE CRUM MD DATE OF SERVICE: 01/10/19 Discharge Plan Patient Name: TABBY VAZQUEZ [facility] [facility] 1950 Planned Disposition: Home Anticipated Discharge Date: Discharge Date: Expected LOS: Initial Reviewer: [email or web address] Initial Review Date: 01/10/2019 Generated: 01/10/19 6:32 pm DCPIA - Discharge Planning Initial Assessment Updated by [email or web address]: Deann Cain on 01/10/19 5:25 pm * Is the patient Alert and Oriented? Yes * How many steps to enter\exit or inside your home? * PCP [facility] * Pharmacy [facility] * Preadmission Environment Home Alone * ADLs Independent * Equipment Wheelchair * List name and contact numbers for known caregivers / representatives who currently or will assist patient after discharge: Mason Vazquez [facility] [place] - [phone] * Verbal permission to speak to the caregivers and representatives has been obtained from the patient. N/A * Community resources currently utilized None * Additional services required to return to the preadmission environment? No * Can the patient safely return to the preadmission environment? Yes * Has this patient been hospitalized within the prior 30 days at any hospital? No Last DP export: 01/10/19 4:24 p Patient Name: TABBY VAZQUEZ Page [id number] at 1732 All edits/amendments must be made on the electronic document DICTATION DATE: 01/10/191731 SCIENTIFIC EDITOR: SOLOMON 01/10/191731 RPT#: [id number] DC DATE: STATUS: ADM IN [facility] [address] [place] [address] END OF REPORT
--- NOTE | 2019-01-10 18:31 | MORECARE ---
CASE MANAGEMENT DISCHARGE SUMMARY PATIENT: TABBY VAZQUEZ UNIT: [id number] ADM DATE: 01/10/19 AGE: 68 : 52 SEX: M ROOM/BED: [facility] AUTHOR: QUAN,DOC PHYSICIAN: REFERRING PHYSICIAN: DULCE CRUM MD DATE OF SERVICE: 01/10/19 Discharge Plan Patient Name: TABBY VAZQUEZ Facility: [facility]:[place] : 1950 Planned Disposition: Home Anticipated Discharge Date: Discharge Date: Expected LOS: Initial Reviewer: [email or web address] Initial Review Date: 01/10/2019 Generated: 01/10/19 7:30 pm Comments DCP- Discharge Planning Updated by [email or web address]: Deann Cain on 01/10/19 5:[address] Patient Name: TABBY VAZQUEZ Admission Status: Elective Accout number: [id number] Admission Date: 01-10-2019 : 1950 Admission Diagnosis: Attending: DULCE CRUM Current LOS: 1 Anticipated DC Date: Planned Disposition: Home Primary Insurance: MEDICARE A & B Discharge Planning Comments: CM met with patient at bedside after explaining CM role and obtaining verbal consent. Patient lives at home alone and plans to return there upon discharge. CM discussed availability / needs of home health and medical equipment. Patient denies any discharge needs at this time. Patient may need walk test if he is still requiring 02 at discharge. Patient states he will have his son drive him home upon discharge. CM will continue to follow and assist as needed with discharge planning / needs. [employer] Department Head: Deann Cain DCPIA - Discharge Planning Initial Assessment Updated by [id number]: Deann Cain on 01/10/19 5:25 pm * Is the patient Alert and Oriented? Yes * How many steps to enter\exit or inside your home? * PCP [facility] * Pharmacy [facility] * Preadmission Environment Home Alone * ADLs Independent * Equipment Wheelchair * List name and contact numbers for known caregivers / representatives who currently or will assist patient after discharge: Mason Vazquez - [place] - [phone] * Verbal permission to speak to the caregivers and representatives has been obtained from the patient. N/A * Community resources currently utilized None * Additional services required to return to the preadmission environment? No * Can the patient safely return to the preadmission environment? Yes * Has this patient been hospitalized within the prior 30 days at any hospital? No Last DP export: 01/10/19 4:32 p Patient Name: TABBY VAZQUEZ Page 25167 at 1831 All edits/amendments must be made on the electronic document DICTATION DATE: 01/10/191829 CNC MECHANIC: SOLOMON 01/10/191829 RPT#: [id number] DC DATE: STATUS: ADM IN [facility] [address] [place] [address] END OF REPORT
--- NOTE | 2019-01-10 18:59 | NUR ---
DANGLED ON SIDE OF BED AND RETURNED TO BED EASILY
--- NOTE | 2019-01-10 19:08 | NUR ---
REPORT RECEIVED, SHIFT ASSESSMENT COMPLETED PER FLOW SHEET. AAOX4. PPP. X2 SUBSTERNAL CT Y'D TOGETHER TO 20 CM SUCTION, NO AIR LEAK NOTED. JHOANA DREW AND SCD'S ON. TPM WIRES CONNECTED TO PACEMAKER BUT NOT TURNED ON. SEE FLOW SHEET FOR COMPLETE ASSESSMENT. CALL LIGHT WITHIN REACH. WILL CONTINUE TO MONITOR.
--- NOTE | 2019-01-10 20:14 | NUR ---
SON AT BEDSIDE, QUESTIONS ANSWERED. WATER PROVIDED TO PATIENT PER HIS REQUEST, DENIES OTHER NEEDS. CALL LIGHT WITHIN REACH.
--- NOTE | 2019-01-10 21:27 | NUR ---
SCHEDULED MEDS GIVEN, WATER PROVIDED. NO TROUBLE SWALLLOWING. DENIES NEEDS. CALL LIGHT WITHIN REACH.
--- NOTE | 2019-01-10 23:04 | NUR ---
REASSESSMENT COMPLETED PER FLOW SHEET, SEE FOR DETAILS. NO ACUTE DISTRESS NOTED. PULLING 100X10 ON IS. COUGH NON-PRODUCTIVE. WILL CONTINUE TO MONITOR. CALL LIGHT WITHIN REACH.
[2019-01-11] VITALS (26 sets, daily range): BP systolic 111–139; BP diastolic 64–80; Ht 188 cm; Wt 108.3 kg
--- NOTE | 2019-01-11 01:00 | NUR ---
NO ACUTE CHANGES NOTED, DENIES NEEDS AT THIS TIME. CALL LIGHT WITHIN REACH.
--- NOTE | 2019-01-11 03:14 | NUR ---
REASSESSMENT COMPLETED PER FLOW SHEET, SEE FOR DETAILS. NO ACUTE CHANGES NOTED. PULLING 1000 X10 ON IS. WATER PROVIDED. DENIES OTHER NEEDS. PPP. WILL CONTINUE TO MONITOR. CALL LIGHT WITHIN REACH.
--- NOTE | 2019-01-11 05:00 | NUR ---
COMPLETE BED BATH GIVEN. COMPLETE BED LINEN CHANGE PROVIDED. SUBSTERNAL DRESSING CHANGED PER DOCTOR'S ORDERS, TPM WIRES SECURED. TOLERATED WELL. CALL LIGHT WITHIN REACH.
--- NOTE | 2019-01-11 05:40 | NUR ---
ASSISSTED OOB TO CHAIR, TOLERATED WELL. CALL LIGHT AND BELONGINGS WITHIN REACH. WILL CONTINUE TO MONITOR.
[2019-01-11 06:14] LABS: HEMATOCRIT 34.6 % (42.0-54.0); MCH 34.3 pg (26.0-34.0); MCHC 34.7 g/dL (31.0-37.0); MCV 98.9 fL (80.0-100.0); MEAN PLATELET VOLUME 10.7 fL (7.4-10.4); RBC 3.5 10x6/uL (4.20-6.10); RDW 12.4 % (11.5-14.5); WBC 11.9 10x3/uL (4.8-10.8)
[2019-01-11 06:46] LABS: ALBUMIN 3.3 g/dL (3.4-5.0); ALKALINE PHOSPHATASE 19 U/L (46-116); ALT (SGPT) 29 U/L (10-68); BILIRUBIN - TOTAL 1.14 mg/dL (0.2-1.3); CALC OSMOLALITY 281 mosm/kg (275-300); CALCIUM 8.3 mg/dL (8.5-10.1); CARBON DIOXIDE 29.8 mmol/L (21.0-32.0); CHLORIDE - SERUM 103 mmol/L (98-107); CREATININE - SERUM 0.8 mg/dL (0.6-1.3); GLUCOSE 151 mg/dL (74-106); POTASSIUM - SERUM 4.2 mmol/L (3.5-5.1); PROTEIN - SERUM 5.8 g/dL (6.4-8.2); SODIUM 139 mmol/L (136-145); UREA NITROGEN 15 mg/dL (7-18); eGFR NON AFRICAN AMERICAN > 90 mL/min (90-120)
--- NOTE | 2019-01-11 09:09 | NUR ---
0700 PT RECIEVED UP IN CHAIR ALERT AN DORIENTED O2 3L DECREASED TO 2L NC, R IJ CVL DRESSING CDI WITH PLASMALYTE AND ZINACEF INFUSING, MIDSTERNAL AND SUBSTERNAL DRESSINGS CDI WITH SUBSTERNAL TPM WIRES ATTACHED TO TPM, TURNED OFF, CTX2 TO 20CM SUCTION SEROSANG DRAINAGE, NO AIR LEAK, CRITICORE LEBLANC DRAINING YELLOW URINE, TEDS AND SCDS IN PLACE 0830 AM MEDS GIVEN, LEBLANC REMOVED TIP INTACT, URINAL PROVIDED, PT REFUSING BREAKFAST, SON IN ROOM AND UPDATED, CALL LIGHT WITHIN REACH
--- NOTE | 2019-01-11 19:21 | NUR ---
BEDSIDE SHIFT REPORT GIVEN BY DEPARTING RN. PT SITTING UP IN BED WATCHING TV. AAOX4. DENIES ANY NEEDS. 2L NC. RT IJ CVL PATENT AND INFUSING. VSS. C/O INCISIONAL PAIN. 01/09. ASSESSMENT COMPLETE. SEE FS FOR DETAILS. SAFETY MEASURES IN PLACE. CBIR.
--- NOTE | 2019-01-11 20:22 | NUR ---
HS MEDS GIVEN. BG CHECKED. SEE FLOWSHEET AND MAR FOR DETAILS.
--- NOTE | 2019-01-11 21:14 | NUR ---
DENIES BATH AT THIS TIME. REQUESTS TO SLEEP. SAYS "MAYBE IN THE MORNING". WILL TRY AGAIN LATER.
--- NOTE | 2019-01-11 22:49 | NUR ---
REASSESSMENT COMPLETE. VSS. NO CHANGES NOTED IN PT CONDITION. SAFETY MEASURES IN PLACE. CBIR.
[2019-01-12] VITALS (29 sets, daily range): BP systolic 102–153; BP diastolic 64–83
--- NOTE | 2019-01-12 01:08 | NUR ---
PRN PAIN MED GIVEN. SEE MAR FOR DETAILS.
--- NOTE | 2019-01-12 02:30 | NUR ---
REPORT REC'D. PT AOX4, VSS. DENIES PAIN. UNLABORED RESPIRATIONS. DENIES PAIN AT THIS TIME. REPOSITIONS SELF INDEPENDENTLY. DENIES NEEDS AT THIS TIME. RESTING COMFORTABLY. CALL LIGHT WITHIN PT REACH. CPOC.
--- NOTE | 2019-01-12 03:40 | NUR ---
PT REPOSITIONED, PARTIAL LINEN CHANGE PROVIDED. VSS, PT DENIES PAIN, DENIES NEEDS. CALL LIGHT WITHIN PT REACH. CPOC.
--- NOTE | 2019-01-12 05:00 | NUR ---
UP TO CHAIR, COMPLETE LINEN CHANGE PROVIDED. COUGH/DB WITH GOOD EFFORT, I/S COMPLETED REACHING 1500 X10. VSS, DENIES PAIN, DENIES NEEDS AT THIS TIME. CALL LIGHT WITHIN PT REACH. CPOC
[2019-01-12 05:12] LABS: HEMOGLOBIN 10.5 g/dL (13.5-17.5); MCH 34.5 pg (26.0-34.0); MCV 98.7 fL (80.0-100.0); MEAN PLATELET VOLUME 10.4 fL (7.4-10.4); RBC 3.04 10x6/uL (4.20-6.10); RDW 12.3 % (11.5-14.5); WBC 10.1 10x3/uL (4.8-10.8)
[2019-01-12 06:02] LABS: ALBUMIN 2.9 g/dL (3.4-5.0); ALKALINE PHOSPHATASE 23 U/L (46-116); ALT (SGPT) 25 U/L (10-68); BILIRUBIN - TOTAL 0.95 mg/dL (0.2-1.3); CALCIUM 8.2 mg/dL (8.5-10.1); CARBON DIOXIDE 27.5 mmol/L (21.0-32.0); CHLORIDE - SERUM 100 mmol/L (98-107); CREATININE - SERUM 0.7 mg/dL (0.6-1.3); GLUCOSE 128 mg/dL (74-106); PROTEIN - SERUM 5.7 g/dL (6.4-8.2); SODIUM 135 mmol/L (136-145); eGFR NON AFRICAN AMERICAN > 90 mL/min (90-120)
[2019-01-12 06:03] LABS: CALC OSMOLALITY 270 mosm/kg (275-300); UREA NITROGEN 11 mg/dL (7-18)
--- NOTE | 2019-01-12 07:00 | NUR ---
AWAKE AND ALERT. UP IN CHAIR AT BEDSIDE. DENIES PAIN EXCEPT WHEN COUGHING. CHEST DRESSINGS DRY AND INTACT. PACER WIRES CONNECTED TO BATTERY. BATTERY NOT TURNED ON. INCENTIVE SPIROMETRY DONE TO 1500. MONITOR SR. OVERTON ORDERED FOR BREAKFAST. STATES HIS STOMACH IS A LITTEL QUEEZY.
--- NOTE | 2019-01-12 08:00 | NUR ---
DR. CRUM HERE. BREAKFAST SERVED.
--- NOTE | 2019-01-12 09:30 | NUR ---
UP ON BSC PASSING GAS. NO BM. AMBULATED IN [place] PER PHYSICAL THERAPY. TOLERATED FAIR. FRESH ICE WATER PROVIDED. ACCUCHECK DONE WITHIN ACCEPTABLE RANGE
--- NOTE | 2019-01-12 11:34 | NUR ---
SITTING UP IN CHAIR AT BEDSIDE. TRYING TO NAP. REFUSED BATH AT THIS TIME.
--- NOTE | 2019-01-12 11:41 | NUR ---
LUNCH TRAY SERVED
--- NOTE | 2019-01-12 11:50 | NUR ---
STANDING INDEPENDENTLY TO VOID. ENCOURAGE TO CALL NURSE
--- NOTE | 2019-01-12 12:52 | NUR ---
COMPLETE BED BATH GIVEN WHILE UP IN CHAIR. STOOD FOR PERINEAL CARE PATIENT TOLERATED WELL.SON HERE ASSISTANING WITH SHAVE AND ORAL CARE
--- NOTE | 2019-01-12 14:00 | NUR ---
WATCHING TV. NO DISTRESS. AMBULATED IN [place] PER PHYSICAL THERAPY TOLERATED FAIR.
--- NOTE | 2019-01-12 15:50 | NUR ---
UP IN CHAIR NO DISTRESS. INCENTIVE SPIROMETRY TO 2000 ML. ENCOURAGE TO COUGH AND DEEP BREATH. WEAK COUGH. STATES IT ONLY HURTS WHEN I COUGH
--- NOTE | 2019-01-12 17:00 | NUR ---
DINNER TRAY SERVED ATE 90% OF SOUP AND PEACHES.DRINK FLUIDS WELL TODAY.
--- NOTE | 2019-01-12 17:35 | NUR ---
AMBULATED TO BED WITH ASSISTANCES. DRESSING DRY AND INTACT. TOLERATED FAIR. SON AT BEDSIDE.
--- NOTE | 2019-01-12 18:30 | NUR ---
STOOD AT BEDSIDE AND VOIDED WITH ASSISTANCES.
--- NOTE | 2019-01-12 18:55 | NUR ---
SUBSTERNAL DRESSING CHANGED. INCISIONS CLEAN WITH BETADINE. NEW BIO PATCH APPLIED. NO DRAINAGE FROM SITES, NO REDNESS. 4X4 APPLIED, COVERED WITH TEGRADERM. PATIENT TOLERATED WELL
--- NOTE | 2019-01-12 19:10 | NUR ---
BEDSIDE SHIFT REPORT GIVEN BY DEPARTING RN. PT LAYING IN BED WATCHING TV. AAOX4. PERRLA. DENIES ANY NEEDS. FRESH ICE WATER PROVIDED. ASSESSMENT COMPLETE. SEE FLOWSHEET FOR DETAILS. SAFETY MEASURES IN PLACE. CBIR.
--- NOTE | 2019-01-12 20:00 | NUR ---
FAMILY AT BEDSIDE. UPDATE GIVEN. ALL QUESTIONS ANSWERED.
--- NOTE | 2019-01-12 20:19 | NUR ---
HS MEDS GIVEN. PRN PAIN MED GIVEN. SEE MAR FOR DETAILS.
--- NOTE | 2019-01-12 21:38 | NUR ---
ALERTED NURSE USING CALL BRANTLEY. HELPED STAND UP TO USE URINAL. TOLERATED WELL.
--- NOTE | 2019-01-12 23:17 | NUR ---
REASSESSMENT COMPLETE. NO CHANGES NOTED IN PT CONDITION. VSS. DENIES PAIN OR NEEDS AT THIS TIME. SAFETY MEASURES IN PLACE. CBIR.
[2019-01-13] VITALS (26 sets, daily range): BP systolic 103–136; BP diastolic 58–87
--- NOTE | 2019-01-13 01:06 | NUR ---
ASLEEP SHOWING NO SS OF DISTRESS. VSS.
--- NOTE | 2019-01-13 03:33 | NUR ---
REASSESSMENT COMPLETE. NO NEW CHANGES NOTED.
--- NOTE | 2019-01-13 04:38 | NUR ---
OOB TO PA AND LAT
[2019-01-13 04:42] LABS: HEMATOCRIT 29.1 % (42.0-54.0); MCH 33.9 pg (26.0-34.0); MCHC 34.4 g/dL (31.0-37.0); MCV 98.6 fL (80.0-100.0); MEAN PLATELET VOLUME 10.4 fL (7.4-10.4); RBC 2.95 10x6/uL (4.20-6.10)
[2019-01-13 04:43] LABS: WBC 6.6 10x3/uL (4.8-10.8)
--- NOTE | 2019-01-13 04:54 | NUR ---
BACK TO ROOM FROM PA AND LAT. TOLERATED WELL. IN CHAIR WATCHING TV WITH NO SS OF DISTRESS NOTED.
[2019-01-13 05:07] LABS: ALBUMIN 2.8 g/dL (3.4-5.0); ALKALINE PHOSPHATASE 26 U/L (46-116); ALT (SGPT) 25 U/L (10-68); BILIRUBIN - TOTAL 0.88 mg/dL (0.2-1.3); CALC OSMOLALITY 275 mosm/kg (275-300); CALCIUM 8.3 mg/dL (8.5-10.1); CARBON DIOXIDE 28.1 mmol/L (21.0-32.0); CHLORIDE - SERUM 102 mmol/L (98-107); CREATININE - SERUM 0.7 mg/dL (0.6-1.3); GLUCOSE 111 mg/dL (74-106); POTASSIUM - SERUM 3.5 mmol/L (3.5-5.1); PROTEIN - SERUM 5.9 g/dL (6.4-8.2); SODIUM 138 mmol/L (136-145); UREA NITROGEN 10 mg/dL (7-18); eGFR NON AFRICAN AMERICAN > 90 mL/min (90-120)
--- NOTE | 2019-01-13 09:40 | TEE ---
PATIENT:TABBY VAZQUEZ MEDICAL RECORD: [id number] LOCATION:[facility] AGE OF PATIENT: 68 ADMISSION DATE: 01/10/19 SEX: M REFERRING PHYSICIAN: INTERPRETING PHYSICIAN: PEPE MULLER MD TRANSESOPHAGEAL ECHOCARDIOGRAM Date: 01/10/19 TRACY CHARGE Y INDICATIONS: MITRAL VALVE REPAIR PREMEDICATIONS: PATIENT'S RESPONSE PROCEDURE DOPPLER MEASUREMENTS: LVIT LA PA RA LVOT RVOT Asc. Ao AV Gradient Peak AV Mean AV Area MV Gradient Peak MV Mean MV Area INTERPRETATION: Doppler: 2-D: COLOR FLOW DOPPLER NORMAL SALINE STUDY: MISCELLANOUS: DIAGNOSIS: PLAN: Oyster Planter:Tati Salguero Material Flow Analyst: Tati PATTERSON COMMENTS: DATE OF SERVICE: 01/10/2019 PROCEDURE: Transesophageal echo evaluation of valvular structures during mitral valve replacement surgery. FINDINGS: 1. Left ventricular chamber size is within normal limits. Left ventricular systolic function is normal. Overall ejection fraction is estimated at 55%. 2. Left atrium is enlarged at 4.5 cm. TRANSESOPHAGEAL ECHOCARDIOGRAM REPORT [id number] TABBY VAZQUEZ 3. Valvular structures: Mitral valve demonstrates mitral valve prolapse with severe mitral regurgitation. Remaining valvular structures have normal structure and motion. 4. No evidence of pericardial effusion or left ventricular thrombus. TRANSINT:[id number] Voice Confirmation ID: [id number] DOCUMENT ID: [id number] at 0940 CC: [id number] DICTATION DATE: 01/10/19 1637 BOX GLUER: 01/10/19 1735 ADM IN [place] [address] [place] [address]
--- NOTE | 2019-01-13 09:45 | NUR ---
0700 PT RECIEVED UP IN CHAIR ALERT AND OREINTED O2 2L NC, R IJ CVL DRESSING CDI WITH PLASMALYTE INFUSING, PLASMALYTE DCD, MIDSTERNAL AND SUBSTERNAL DRESSINGS CDI, TPM WIRES ATTACHED AND SECURED, TEDS AND SCDS IN USE 0900 AMBULATED WITH PT, TOOK AM MEDS AND ATE BREAKFAST WIHTOUT DIFFICULTY
--- NOTE | 2019-01-13 12:04 | NUR ---
NUTRITION F/U CHART REVIEWED, PT VISIT. TOLERATING DIET AND REPORTS INTAKE "OKAY BUT NOT MUCH APPETITE YET". WILL CONTINUE TO PROVIDE AHA DIET, MONITOR PO INTAKE. RD FOLLOWING
[2019-01-13] MEDS ORDERED: PERCOCET 5-3251 TAB PO (12:26)
--- NOTE | 2019-01-13 17:07 | NUR ---
1200 ATE 75% LUNCH 1300 AMBULATED WITH PT 1700 ATE 75% DINNER
--- NOTE | 2019-01-13 19:40 | NUR ---
REC'D PT RESTING IN BED ON ROOM AIR, PT AWAKE, ALERT, AND ORIENTED X 4, MIDSTERNAL DRSG CDI, RIJ CVL DRSG CDI, SIDE PORTS SALINE LOCKED, SUBSTERNAL DRSG TO P/M WIRES AND PREVIOUS CT INSERTION SITES DRSG CDI, PT DENIES PAIN OR NEEDS, ABD SOFT, BS ACTIVE, URINAL EMPTIED OF 100 DARK URINE, PPP, SR UP X 2, CALL LIGHT IN REACH.
--- NOTE | 2019-01-13 20:30 | NUR ---
FAMILY AT BS, UPDATE PROVIDED AND QUESTIONS ANSWERED, PT RESTING IN BED VISITING WITH FAMILY, DENIES NEEDS.
--- NOTE | 2019-01-13 21:15 | NUR ---
EVENING MEDS GIVEN ORDERED, PT MOVING SELF INDEPENDENTLY IN BED FOR COMFORT, DENIES PAIN, LIGHTS TURNED DOWN, CALL LIGHT IN REACH.
--- NOTE | 2019-01-13 23:15 | NUR ---
REASSESSMENT COMPLETED, PT RESTING IN BED WATCHING TV, PT DENIES PAIN OR NEEDS, ICE WATER PROVIDED, BP STABLE, CM-SR @ 99, WILL CONTINUE TO MONITOR FOR CHANGES.
[2019-01-14] VITALS (13 sets, daily range): BP systolic 119–137; BP diastolic 72–86
--- NOTE | 2019-01-14 01:00 | NUR ---
PT RESTING IN BED, EYES CLOSED, RESP EVEN AND UNLABORED, VSS
--- NOTE | 2019-01-14 03:00 | NUR ---
REASSESSMENT COMPLETED, NO CHANGES FROM PREVIOUS ASSESSMENT, PT DENIES PAIN OR NEEDS, SR UP X 2, CALL LIGHT IN REACH.
--- NOTE | 2019-01-14 04:30 | NUR ---
PT TAKEN TO RADIOLOGY FOR PA AND LATERAL, TOLERATED WELL, LINEN CHANGE PROVIDED, PT REQUESTING TO LIE BACK DOWN TEMPORARILY, BACK TO BED WITHOUT DIFFICULTY, VSS, SR UP X 2, CALL LIGHT IN REACH.
--- NOTE | 2019-01-14 04:40 | NUR ---
PT RETURNED TO ROOM, WISHES TO RETURN TO BED UNTIL BREAKFAST TIME, MONITORS REESTABLISHED, CALL LIGHT IN REACH.
--- NOTE | 2019-01-14 05:55 | NUR ---
AM LAB DRAWN AND SENT TO LAB, PT ASSISTED UP TO CHAIR AT BS, PT DENIES PAIN OR NEEDS.
[2019-01-14 06:20] LABS: HEMOGLOBIN 10.4 g/dL (13.5-17.5); MCH 34.1 pg (26.0-34.0); MCHC 34.7 g/dL (31.0-37.0); MCV 98.4 fL (80.0-100.0); MEAN PLATELET VOLUME 10.4 fL (7.4-10.4); RBC 3.05 10x6/uL (4.20-6.10); RDW 12.2 % (11.5-14.5); WBC 5.1 10x3/uL (4.8-10.8)
[2019-01-14 06:33] LABS: ALBUMIN 2.7 g/dL (3.4-5.0); ALKALINE PHOSPHATASE 29 U/L (46-116); ALT (SGPT) 29 U/L (10-68); BILIRUBIN - TOTAL 0.88 mg/dL (0.2-1.3); CALC OSMOLALITY 277 mosm/kg (275-300); CALCIUM 8.7 mg/dL (8.5-10.1); CARBON DIOXIDE 27.2 mmol/L (21.0-32.0); CHLORIDE - SERUM 104 mmol/L (98-107); CREATININE - SERUM 0.6 mg/dL (0.6-1.3); GLUCOSE 104 mg/dL (74-106); POTASSIUM - SERUM 3.7 mmol/L (3.5-5.1); SODIUM 140 mmol/L (136-145); UREA NITROGEN 11 mg/dL (7-18); eGFR NON AFRICAN AMERICAN > 90 mL/min (90-120)
--- NOTE | 2019-01-14 07:00 | NUR ---
REC'D UP IN CHAIR. PLEASANT- DENIES PAIN OR ANY NEED AT THIS TIME.
--- NOTE | 2019-01-14 07:30 | NUR ---
ASSESSED. VSS. STATES IS READY TO GO HOME. DENIES PAIN.
--- NOTE | 2019-01-14 08:30 | NUR ---
SON AT BEDSIDE AND UPDATED.
--- NOTE | 2019-01-14 09:45 | NUR ---
AMBULATES 500 FT IN [place]- TOLERATES WELL.
--- NOTE | 2019-01-14 10:30 | NUR ---
DR TORRES IN- TPW REMOVED. BETADINE OINT APPLIED THEN DRESSED W/ GAUZE & TAPE.
[2019-01-14] MEDS ORDERED: ASPIRIN EC81 M1 PO (10:48)
--- NOTE | 2019-01-14 12:25 | NUR ---
RT IJ CVL REMOVED, MANUAL PRESSURE HELD X5 MIN- SITE W/O BLEEDING OR S/S INFECTION. PT AND SON INSTRUCTED ON S/S TO REPORT- UNDERSTANDING VERBALIZED.
--- NOTE | 2019-01-14 13:30 | NUR ---
RT IJ SITE DRSG C/D/I. DC INSTRUCTIONS PROVIDED- QUESTIONS ANSWERED. PRESCRIPTION AND IMPLANT INFORMATION GIVEN. DC BY W/C WITH SON.
--- NOTE | 2019-01-16 15:04 | MORECARE ---
CASE MANAGEMENT DISCHARGE SUMMARY PATIENT: TABBY VAZQUEZ UNIT: [id number] ADM DATE: 01/10/19 AGE: 68 : [birth year] SEX: M ROOM/BED: D[facility] AUTHOR: QUAN,DOC PHYSICIAN: REFERRING PHYSICIAN: DULCE CRUM MD DATE OF SERVICE: 01/16/19 Discharge Plan Patient Name: TABBY VAZQUEZ Facility: [facility]:[place] : 1950 Planned Disposition: Home Anticipated Discharge Date: Discharge Date: 01/14/2019 Expected LOS: Initial Reviewer: [email or web address] Initial Review Date: 01/10/2019 Generated: 01/16/19 4:04 pm DCP- Discharge Planning Updated by [email or web address]: Deann Cain on 01/10/19 5:[address] Patient Name: TABBY VAZQUEZ Admission Status: Elective Accout number: [id number] Admission Date: 01-10-2019 : 1950 Admission Diagnosis: Attending: DULCE CRUM Current LOS: 1 Anticipated DC Date: Planned Disposition: Home Primary Insurance: MEDICARE A & B Discharge Planning Comments: CM met with patient at bedside after explaining CM role and obtaining verbal consent. Patient lives at home alone and plans to return there upon discharge. CM discussed availability / needs of home health and medical equipment. Patient denies any discharge needs at this time. Patient may need walk test if he is still requiring 02 at discharge. Patient states he will have his son drive him home upon discharge. CM will continue to follow and assist as needed with discharge planning / needs. Turbo Electric Operator: Deann Cain DCPIA - Discharge Planning Initial Assessment Updated by [email or web address]: Deann Cain on 01/10/19 5:25 pm * Is the patient Alert and Oriented? Yes * How many steps to enter\exit or inside your home? * PCP [place] * Pharmacy [facility] * Preadmission Environment Home Alone * ADLs Independent * Equipment Wheelchair * List name and contact numbers for known caregivers / representatives who currently or will assist patient after discharge: Mason Vazquez - ton - [phone] * Verbal permission to speak to the caregivers and representatives has been obtained from the patient. N/A * Community resources currently utilized None * Additional services required to return to the preadmission environment? No * Can the patient safely return to the preadmission environment? Yes * Has this patient been hospitalized within the prior 30 days at any hospital? No Coverage Notice Reviewer: [email or web address] Mara Cotton Notice Issued Date-Time: 01/14/2019 12:13 Notice Type: IM Discharge Notice Notice Delivered To: Patient Relationship to Patient: Self Residential Service Technician Name: Delivery Method: HAND - Hand Delivered Ana Days: Prior Verbal Notification: Recipient Understood Notice: Yes Recipient Signature: Yes Med Rec Note Co-signed by Attending: Coverage Notice Comment: Last DP export: 01/10/19 5:31 p Patient Name: TABBY VAZQUEZ Page [id number] at 1504 All edits/amendments must be made on the electronic document DICTATION DATE: 01/16/19 1503 BRICK OFFBEARER: SOLOMON 01/16/19 1503 RPT#: [id number] DC DATE:01/14/19 STATUS: DIS IN [facility] [address] [place] [address] END OF REPORT
== END 2019-01-14 13:30 | disposition home or self-care (01) | DRG 221 ==
LOC: D.SDCHOLD 11:00 → D.CVICU 01-10 05:00 → D.SDCHOLD 01-10 05:00 → D.CVICU 01-10 09:23 → D.SDCHOLD 01-10 11:00 → D.CVICU 01-14 13:30
PROVIDERS: ADMIT Thoracic Surgery (Cardiothoracic Vascular Surgery); ATTEND Thoracic Surgery (Cardiothoracic Vascular Surgery)
PROC: 02BG0ZZ Excision of Mitral Valve, Open Approach (ICD-10-PCS; 2019-01-10)
PROC: 5A1221Z Performance of Cardiac Output, Continuous (ICD-10-PCS; 2019-01-10)
PROC: B24BZZ4 Ultrasonography of Heart with Aorta, Transesophageal (ICD-10-PCS; 2019-01-10)
PROC: 02UG0JZ Supplement Mitral Valve with Synthetic Substitute, Open Approach (ICD-10-PCS; principal; 2019-01-10 07:30)
DX: I34.0 Nonrheumatic mitral (valve) insufficiency (principal); I10 Essential (primary) hypertension; R01.1 Cardiac murmur, unspecified; Z87.891 Personal history of nicotine dependence

== ENCOUNTER → 2019-03-01 09:46 | Outpatient (CLI) | payer MEDICARE, BC ==
[2019-01-11 13:18] VITALS: BMI 31.9
[~2019-03-01 09:46] MED LIST changes: +ASPIRIN EC81 M1 PO; +PERCOCET 5-3251 TAB PO
[2019-03-01 10:38] LABS: MCH 32.8 pg (26.0-34.0); MCHC 34.1 g/dL (31.0-37.0); RBC 4.27 10x6/uL (4.20-6.10); RDW 12.9 % (11.5-14.5)
[2019-03-01 10:49] LABS: ALBUMIN 3.9 g/dL (3.4-5.0); ALKALINE PHOSPHATASE 54 U/L (46-116); ALT (SGPT) 29 U/L (10-68); BILIRUBIN - TOTAL 0.77 mg/dL (0.2-1.3); CALC OSMOLALITY 279 mosm/kg (275-300); CARBON DIOXIDE 29.6 mmol/L (21.0-32.0); CHLORIDE - SERUM 103 mmol/L (98-107); GLUCOSE 111 mg/dL (74-106); POTASSIUM - SERUM 4.3 mmol/L (3.5-5.1); PROTEIN - SERUM 7.3 g/dL (6.4-8.2); SODIUM 139 mmol/L (136-145); UREA NITROGEN 16 mg/dL (7-18); eGFR NON AFRICAN AMERICAN 79 mL/min (90-120)
== END | disposition home or self-care (01) ==
LOC: D.LAB 09:46
PROVIDERS: ATTEND Thoracic Surgery (Cardiothoracic Vascular Surgery)
DX: D64.9 Anemia, unspecified (principal); J91.8 Pleural effusion in other conditions classified elsewhere

== ENCOUNTER → 2019-09-01 09:25 | Outpatient (CLI) | payer MEDICARE, BC ==
[2019-01-11 13:18] VITALS: BMI 31.9
--- NOTE | ~2019-09-01 | EC ---
PATIENT:TABBY VAZQUEZ DATE OF SERVICE: 09/01/19 SEX: M MEDICAL RECORD: [id number] DATE OF : [birth year] [facility] AGE OF PATIENT: 69 ADMISSION DATE: 09/01/19 REFERRING PHYSICIAN: INTERPRETING PHYSICIAN: PEPE NUNN MD ECHOCARDIOGRAM REPORT ECHO CHARGES 4 ECHO COMPLETE Date: 09/01/19 CLINICAL DIAGNOSIS: MR ECHOCARDIOGRAPHIC MEASUREMENTS (adult normal given) AC root (d.<3.7cm) 3.2 cm LV Septum d (<1.2 cm> 1.0 cm Valve Excursion 1.8 cm LV Septum (systole) 1.2 cm Left Atria (s.<4.0cm> 4.6 cm LVPW d(<1.2cm) 0.7 cm RV (d.<2.3cm) 3.2 cm LVPW (sytole) 0.8 cm LV diastole(<5.6CM) 5.8 cm MV E-F(>70mm/sec) cm LV systole 4.9 cm LVOT Diameter 2.0 cm MV exc.(>10mm) cm Est.ejection fraction (50-75%) % DOPPLER: LVIT cm/sec A 154 cm/sec E 102 cm/sec LA cm/sec RVSP 26.3 mmHg LVOT 114 cm/sec AOP1/2T m/s Asc. Ao 134 cm/sec RVOT 85 cm/sec RA cm/sec PA 104 cm/sec AV Gradient Peak 7.1 mmHg AV Mean 3.8 mmHg AV Area 2.6 cm MV Gradient Peak 10.6 mmHg MV Mean 4.7 mmHg MV Area cm COMMENTS: Drone Pilot: Jeff MARKHAM Aged Or Disabled Care Worker: Ivan Nunn TAPE# PACS Pericardial Effusion N DATE OF SERVICE: 09/01/2019 FINDINGS: 1. Left ventricular chamber size is within normal limits. Left ventricular systolic function is normal, ejection fraction estimated at 60%. 2. Left atrium is enlarged at 4.6 cm. Right atrium and right ventricle chamber sizes are within normal limits. 3. Valvular structures have normal structure and motion. 4. Doppler interrogation reveals mild mitral regurgitation, mild tricuspid regurgitation, no other valvular insufficiency or stenosis and pulmonary ECHOCARDIOGRAM REPORT [id number] TABBY VAZQUEZ systolic pressure is estimated at 26 mmHg. 5. No evidence of pericardial effusion or left ventricular thrombus. TRANSINT:[id number] Voice Confirmation ID: [id number] DOCUMENT ID: [id number] PEPE NUNN MD CC: [id number] DICTATION DATE: 09/01/191516 CAPITAL EQUIPMENT SPECIALIST: 09/01/19 2256 [facility] [address] [place] [id number]
== END | disposition home or self-care (01) ==
LOC: D.US 09:25 → D.ECHO 10:35
PROVIDERS: ATTEND Thoracic Surgery (Cardiothoracic Vascular Surgery)
DX: I34.0 Nonrheumatic mitral (valve) insufficiency (principal); I65.23 Occlusion and stenosis of bilateral carotid arteries

== ENCOUNTER → 2021-01-01 08:04 | Outpatient (CLI) | payer MEDICARE, BC ==
[2019-01-11 13:18] VITALS: BMI 31.9
== END | disposition home or self-care (01) ==
LOC: D.HCCECHO 08:04
PROVIDERS: ATTEND Internal Medicine Cardiovascular Disease
DX: Z98.890 Other specified postprocedural states (principal)